=== PATIENT | male | born 1990 | race Caucasian/White ===

== ENCOUNTER 2018-07-14 14:55 | Emergency (ER) | payer OTHER ==
[~2018-07-14 14:55] MED LIST: ISOVUE-370 76%-LOCM 1 ML ONE
[2018-07-14] MEDS ORDERED: Dextrose 50% Abboject 50 ML SYRINGE ONE (15:02)
--- NOTE | 2018-07-14 15:16 | CT ---
CT OF BRAIN PERFORMED WITHOUT CONTRAST ENHANCEMENT: Date: 07/14/18 HISTORY: Vision loss. FINDINGS: The ventricular and cisternal system is within normal limits. There are no signs of intracerebral hem orrhage or extra-axial fluid collections. Mastoid air cells and visualized sinuses are clear. IMPRESSION: No acute intracranial abnormality. POS: [facility]
[2018-07-14 15:19] LABS: #Basophils 0.1 thou/uL (0.0-0.2); #Eosinphils 0.4 thou/uL (0.0-0.7); #Lymphocytes 2.8 thou/uL (1.20-3.40); #Monocytes 0.6 thou/uL (0.11-0.59); #Neutrophils 3.3 thou/uL (1.40-6.50); %Basophils 1.4 % (0.0-1.0); %Eosinophils 5.8 % (0.0-10.0); %Lymphocytes 38.8 % (21.0-51.0); %Monocytes 8.6 % (0.0-10.0); %Neutrophils 45.5 % (42.0-75.0); Hemoglobin 15.2 g/dL (14.0-18.0); Mean Corpuscular HGB CONC 34.3 g/dL (32.0-36.0); Mean Corpuscular Volume 96.3 fL (78.0-98.0); Mean Platelet Volume 6.5 fL (7.4-10.4); Platelet Count 402 thou/uL (130-400); RBC Distribution Width 11.1 % (11.5-14.5); White Blood Cell (WBC) Count 7.2 thou/uL (4.8-10.8)
[2018-07-14 15:25] LABS: Prothrombin Time 12.9 SEC (12.0-14.7)
[2018-07-14 15:26] LABS: PTT 30.1 SEC (22.9-36.1)
[2018-07-14 15:33] LABS: ALT (SGPT) 14 U/L (8-55); AST (SGOT) 17 U/L (5-34); Albumin 4.8 g/dL (3.5-5.0); Alkaline Phosphatase 86 U/L (40-150); Anion Gap 14 mmol/L (10-20); BUN (Urea Nitrogen) 18 mg/dL (8.9-20.6); Bilirubin, Total 0.4 mg/dL (0.2-1.2); Calc. Creatinine Clearance 0 mL/min (70-130); Calcium 10.2 mg/dL (7.8-10.44); Carbon Dioxide 27 mmol/L (22-29); Chloride 106 mmol/L (98-107); Estimated GFR-MDRD 70; Globulin 2.8 g/dL (2.4-3.5); Glucose 69 mg/dL (70-105); Potassium 4.5 mmol/L (3.5-5.1); Protein, Total 7.6 g/dL (6.0-8.3); Sodium 142 mmol/L (136-145)
[2018-07-14 15:37] LABS: CKMB 1.2 ng/mL (0-6.6); Troponin I Less than 0.010 ng/mL (< 0.028)
--- NOTE | 2018-07-14 17:38 | CT ---
CTA BRAIN WITH CONTRAST AND 3D VOLUME RENDERING CTA NECK WITH CONTRAST AND 3D VOLUME RENDERING 07/14/18 CLINICAL HISTORY: Vision loss, contralateral hemianopsia. FINDINGS: The imaged aortic arch is patent. Great vessels that emanate from the aortic arch are somewhat limite d by streak artifact from adjacent venous contrast, although are grossly patent. Bilateral subclavian arteries, where visualized reveal no obvious stenosis with marked limitation of visualization of lef t subclavian artery due to prominent venous contrast opacification at the left base of neck/upper mt st. The bilateral common carotid and cervical internal carotid arteries are patent. Bilateral vertebral a rteries are patent and converge to form a patent basilar artery. There is no significant stenosis of either GLO, MCA or MISSILE TECHNICIAN. Each terminal ICA is patent. No discrete intracranial aneurysm visualized. IMPRESSION: No significant arterial pathology of the head and neck evident. If there remains concern for contrala teral hemianopsia, consider noncontrast brain MRI to further evaluate. Case discussed with hand riveter, Dr. Rodriges, at time of interpretation, 1600 hours, 07/14/18. Code CR POS: [email or web address]
--- NOTE | 2018-07-16 11:20 | EKG ---
Test Reason : Blood Pressure : / mmHG Vent. Rate : 078 BPM Atrial Rate : 078 BPM P-R Int : 182 ms QRS Dur : 084 ms QT Int : 364 ms P-R-T Axes : 064 082 062 degrees QTc Int : 414 ms Normal sinus rhythm Early repolarization Normal ECG Confirmed by MATTHIAS CHANDRA M.D. ([id number]), editorial assistant JOSE HERNANDEZ ([id number]) on 07/16/2018 11:20:11 AM Referred By: Confirmed By:MATTHIAS CHANDRA M.D.
== END 2018-07-14 18:41 | disposition home or self-care (01) ==
LOC: ERS 14:55
DX: Z00.00 Encounter for general adult medical examination without abnormal findings (principal); Z87.891 Personal history of nicotine dependence; F43.10 Post-traumatic stress disorder, unspecified
CPT/HCPCS: 36416; 70450; 70496; 70498; 80053; 82553; 84484; 85025; 85610; 85730; 93005; 94760; 96374

== ENCOUNTER 2018-10-17 10:44 | Emergency (ER) | payer OTHER ==
[2018-10-17] MEDS ORDERED: Ibuprofen 800 MG TAB ONE (10:58)
--- NOTE | 2018-10-17 11:09 | RAD ---
RIGHT HAND 3 VIEWS: Date: 10/17/18 HISTORY: Right hand pain and swelling, injury. FINDINGS/IMPRESSION: There is a mildly displaced acute fracture involving the shaft of the fifth metacarpal. Old, healed fracture of the shaft of the fourth metacarpal is seen. POS: [facility]
== END 2018-10-17 11:40 | disposition home or self-care (01) ==
LOC: ERS 10:44
DX: S62.326A Displaced fracture of shaft of fifth metacarpal bone, right hand, initial encounter for closed fracture (principal); Y04.0XXA Assault by unarmed brawl or fight, initial encounter
CPT/HCPCS: 26600

== ENCOUNTER 2020-05-18 20:43 | Emergency (ER) | payer OTHER ==
[2020-05-18] MEDS ORDERED: Dexamethasone 4 mg/ml Vial ONE (20:59)
== END 2020-05-18 21:17 | disposition home or self-care (01) ==
LOC: ERS 20:43
DX: L25.9 Unspecified contact dermatitis, unspecified cause (principal)
CPT/HCPCS: 96372; 99282; J1100